=== PATIENT | female | born 1970 | race Hispanic/Latino ===

== ENCOUNTER 2025-01-18 07:33 | Emergency (ER) | payer SELFPAY ==
[2025-01-18] MEDS ORDERED: MORPHINE 4 MG/ML SYR ONE (08:57)
[2025-01-18] MEDS ORDERED: ONDANSETRON 4 MG/2 ML VIAL ONE (08:57)
[2025-01-18] MEDS ORDERED: NA CHLORIDE 0.9% 1,000 ML ONE (08:58)
[2025-01-18] MEDS ORDERED: FAMOTIDINE 20 MG/2 ML VIAL IV ONE (08:58)
[2025-01-18 09:07] LABS: Absolute Eosinophils 0.1 K/uL (0-0.5); Absolute Lymphocytes (CBC) 1.4 K/uL (0.7-4.9); Absolute Monocytes 0.4 K/uL (0.1-1.3); Absolute Neutrophil 5.1 K/uL (1.8-8.0); Basophils % 0.3 % (0-1.3); Eosinophils % 0.9 % (0-4.4); Hematocrit 38.5 % (36.0-45.0); Hemoglobin 13.2 g/dL (12.0-15.0); MCH 30.2 pg (27.0-35.0); MCHC 34.2 g/dL (32.0-36.0); MCV 88.5 fL (80-100); MPV 7.6 fL (7.6-11.3); Monocytes % 5.9 % (3.3-12.3); Neutrophils % 72.9 % (41.7-73.7); Nucleated Red Blood Cells % 0.1 % (0-0); Platelets 298 thou/uL (152-406); RBC Red Blood Cell Count 4.35 M/uL (3.86-4.86); Red Cell Distribution Width 15.1 % (12.1-15.2)
[2025-01-18 09:28] LABS: Albumin 3.8 g/dL (3.4-5.0); Anion Gap 9.8 mEq/L (5.0-15.0); Bilirubin Total 0.3 mg/dL (0.2-1.0); Potassium 3.8 mEq/L (3.5-5.1); Protein, Total 7.8 g/dL (6.4-8.2)
[2025-01-18] MEDS ORDERED: CIPROFLOXACIN 400mg IV 400 MG/200 ML BAG IV ONE (10:10)
[2025-01-18] MEDS ORDERED: METRONIDAZOLE 500mg IVPB 500 MG/100 ML BAG IV ONE (10:10)
--- NOTE | 2025-01-18 10:25 | RAD REPORT ---
EXAMINATION: Abdomen Pelvis W Contrast CLINICAL INDICATION: Female, 54 years old.ABD PAIN TECHNIQUE: CT abdomen and pelvis was performed, after the administration of IV contrast, as per [facility] protocol. Axial, sagittal and coronal reconstructions were obtained. One or more of the following dose reduction techniques were used: Automated exposure control, adjustment of the mA and/o r kV according to patient size, and/or iterative reconstruction. Unless otherwise specified, incidental findings do not require dedicated imaging follow-up. [id number]. COMPARISON: No prior exam. FINDINGS: LOWER CHEST: No acute process identified.No significant pericardial effusion. UPPER GI: No significant abnormality. LIVER: Hepatic steatosis, but otherwise unremarkable. GALLBLADDER/BILE DUCTS: No biliary ductal dilatation.? PANCREAS: No mass, ductal dilation, or nae-pancreatic fluid. SPLEEN: Unremarkable. ADRENALS: No adrenal masses. KIDNEYS AND URETERS: No hydronephrosis.No suspicious renal mass.Nonobstructing renal calculi. ABDOMINAL AORTA AND OTHER VESSELS: Normal caliber aorta and IVC. PERITONEUM: No abnormal free fluid. No free air. LYMPH NODES: No pathologic lymphadenopathy. ABDOMINAL WALL: Unremarkable SMALL BOWEL/COLON: Small bowel has normal course and caliber. No colonic wall thickening or pericolon ic inflammatory changes. URINARY BLADDER: Underdistended but grossly unremarkable. REPRODUCTIVE ORGANS: The lower uterine segment and cervix may be distended with blood products. 4 cm simple appearing left ovarian cyst. MUSCULOSKELETAL: No acute or suspicious osseous abnormality. ADDITIONAL FINDINGS: None. IMPRESSION: Distended lower uterine segment and cervix with likely blood products. The accumulation of blood in t his region could be from cervical stenosis. Suggest clinical correlation. Could also consider pelvic ultrasound. 4 cm simple appearing left adnexal cyst. Nonemergent pelvic ultrasound is recommended for further tyson luation.
[2025-01-18 10:29] LABS: Calcium Oxalate Crystals- Ur Few /HPF (None Seen); Specific Gravity 1.026 (1.005-1.030); Sqamous Epithelial <5 /HPF (None Seen); Urine Bacteria None Seen /HPF (<20); Urine Bilirubin NEGATIVE (Negative); Urine Blood 2+ (Negative); Urine Clarity Turbid (Clear); Urine Color Yellow (Yellow); Urine Culture Reflex Order NOT NEEDED; Urine Glucose NEGATIVE (Negative); Urine Ketones 1+ (Negative); Urine Microscopic Reflex YN ORDER UMIC; Urine Mucus Slight /HPF (None Seen); Urine Nitrite NEGATIVE (Negative); Urine Protein NEGATIVE (Negative); Urine RBC <5 /HPF (None Seen); Urine Urobilinogen Normal (Normal); Urine WBC <5 /HPF (<5); Urine pH 5.5 (5.0-7.0)
--- NOTE | 2025-01-18 11:17 | ER ---
Nurse's Notes [facility] Name: Ana Herron Age: 54 yrs Sex: Female : 1970 Arrival Date: 01/18/2025 Time: 07:33 Bed 6 Private MD: Diagnosis: Abdominal tenderness;Dysmenorrhea, unspecified Presentation: 01/18 07:42 Chief complaint: Patient states: lower abd pain since 4 am, radiates to left lower back iw , is on her period , she thought it was cramping , took two ibuprofen at 5 am. Coronavirus screen: At this time, the client does not indicate any symptoms associated with coronavirus-19. Ebola Screen: No symptoms or risks identified at this time. Initial Sepsis Screen: Does the patient meet any 2 criteria? No. Patient's initial sepsis screen is negative. Does the patient have a suspected source of infection? No. Patient's initial sepsis screen is negative. Risk Assessment: Do you want to hurt yourself or someone else? Patient reports no desire to harm self or others. Onset of symptoms was January 18, 2025. 07:42 Method Of Arrival: Ambulatory iw 07:42 Acuity: [place] 3 iw Triage Assessment: 07:45 General: Appears in no apparent distress. uncomfortable, obese, Behavior is calm, bp cooperative, appropriate for age. Pain: Complains of pain in abdomen. EENT: No deficits noted. Neuro: No deficits noted. Cardiovascular: No deficits noted. Respiratory: No deficits noted. GI: Abdomen is non-distended, obese. : Reports vaginal bleeding that is. Derm: No deficits noted. Musculoskeletal: No deficits noted. Historical: - Allergies: 07:44 No Known Allergies; iw - Home Meds: 07:44 None [Active]; iw - PMHx: 07:44 None; iw - PSHx: 07:44 section; iw 07:44 tubal ligation; iw - Immunization history:: Adult Immunizations Client reports receiving the 2nd dose of the Covid vaccine, Flu vaccine is not up to date. - Infectious Disease History:: Denies. - Social history:: Smoking status: Patient uses alcohol, weekly. - Family history:: not pertinent. Screenin:00 [facility] ED Fall Risk Assessment (Adult) History of falling in the last 3 months, bp including since admission No falls in past 3 months (0 pts) Confusion or Disorientation No (0 pts) Intoxicated or Sedated No (0 pts) Impaired Gait No (0 pts) Mobility Assist Device Used No (0 pt) Altered Elimination No (0 pt) Score/Fall Risk Level 0 - 2 = Low Risk. Abuse screen: Denies threats or abuse. Denies injuries from another. Nutritional screening: No deficits noted. Tuberculosis screening: No symptoms or risk factors identified. Assessment: 07:45 General: Appears in no apparent distress. uncomfortable, obese, Behavior is calm, bp cooperative, appropriate for age. 10:00 Reassessment: Patient appears in no apparent distress at this time. No changes from bp previously documented assessment. Patient is alert, oriented x 3, equal unlabored respirations, skin warm/dry/pink. 12:00 Reassessment: Patient appears in no apparent distress at this time. No changes from bp previously documented assessment. Patient is alert, oriented x 3, equal unlabored respirations, skin warm/dry/pink. 12:55 GI: Bowel sounds present X 4 quads. Abd is soft X 4 quads. bp Vital Signs: 07:42 BP 133 / 82; Pulse 82; Resp 16; Pulse Ox 100% on R/A; Weight 81.65 kg; Height 5 ft. 0 iw in. ; Pain 9/10; 10:00 BP 141 / 79; Pulse 79; Resp 16; Pulse Ox 100% ; bp 12:00 BP 137 / 81; Pulse 83; Resp 16; Pulse Ox 100% ; bp 07:42 Body Mass Index 35.15 (81.65 kg, 152.4 cm) iw 07:42 Pain Scale: Adult iw ED Course: 07:38 Patient arrived in ED. im 07:39 Cornell Negro MD is Attending Physician. bonifacio 07:43 Triage completed. iw 07:45 Arm band placed on. iw 08:06 Emeterio Oseguera, RN is Primary Nurse. bp 08:54 Inserted saline lock: 20 gauge in right antecubital area, using aseptic technique. td1 08:54 Initial lab(s) drawn, by me, sent to lab. Urine collected: clean catch specimen, clear. td1 10:14 CT Abd/Pelvis - IV Contrast Only In Process Unspecified. EDMS 10:22 UA Rfx Jamey Cult if indicated Sent. td1 11:16 Gina Santos MD is Referral Physician. bonifacio 11:43 Pelvis Complete In Process Unspecified. EDMS 12:00 Patient has correct armband on for positive identification. bp 12:00 No provider procedures requiring assistance completed. IV discontinued, intact, bp bleeding controlled, No redness/swelling at site. Pressure dressing applied. 12:09 Transvaginal Study Probe In Process Unspecified. EDMS Administered Medications: 08:45 Drug: Famotidine IVP 20 mg IVP once; dilute with 10 mL 0.9% NaCl; give over 2 minutes bp Route: IVP; Site: right antecubital; 12:54 Follow up: Response: No adverse reaction bp 08:45 Drug: Ondansetron IVP 4 mg IVP once; over 2 minutes Route: IVP; Site: right antecubital;bp 12:55 Follow up: Response: No adverse reaction bp 08:45 Drug: morphine IVP or IV 4 mg IVP once over 4 mins Route: IVP; Infused Over: 4 mins; bp Site: right antecubital; 12:54 Follow up: Response: No adverse reaction bp 08:45 Drug: NS 0.9% IV 1000 ml IV at 1 bolus Per protocol; to be given as a bolus over 60 bp minutes Route: IV; Rate: 1 bolus; Site: right antecubital; 12:55 Follow up: IV Status: Completed infusion bp 10:00 Drug: metroNIDAZOLE IVPB 500 mg 100 ml IVPB at 200 ml/hr once over 30 mins Volume: 100 bp ml; Route: IVPB; Rate: 200 ml/hr; Infused Over: 30 mins; Site: right antecubital; 12:54 Follow up: IV Status: Completed infusion bp 10:45 Drug: Ciprofloxacin IVPB 400 mg 200 ml IVPB once over 60 mins Volume: 200 ml; Route: bp IVPB; Infused Over: 60 mins; Site: right antecubital; 12:54 Follow up: IV Status: Completed infusion bp 11:20 Drug: Ketorolac IVP 15 mg IVP once Route: IVP; Site: right antecubital; bp 12:54 Follow up: Response: No adverse reaction bp Medication: 12:00 VIS not applicable for this client. bp Outcome: 11:16 Discharge ordered by . bonifacio 12:53 Discharged to home ambulatory, bp 12:53 Condition: stable 12:53 Discharge instructions given to patient, Instructed on discharge instructions, follow up and referral plans. medication usage, Demonstrated understanding of instructions, follow-up care, medications, Prescriptions given X 4, 12:55 Patient left the ED. bp Signatures: Dispatcher [employer] EDCornell Garcia MD MD cha Williams, Irene, RN RN iw Peltier, Brian, RN RN Tiffany Pichardo Trey td1
--- NOTE | 2025-01-18 11:17 | EDPHYS ---
Physician Documentation [facility] Name: Ana Herron Age: 54 yrs Sex: Female : 1970 Arrival Date: 01/18/2025 Time: 07:33 Bed 6 Private MD: LAKHWINDER Physician Cornell Negro HPI: 01/18 09:39 This 54 yrs old Female presents to ER via Ambulatory with complaints of bonifacio Abdominal Pain. 09:39 The patient presents with abdominal pain in the lower abdomen. Onset: The bonifacio symptoms/episode began/occurred today. The symptoms radiate to the left flank. Associated signs and symptoms: none. The symptoms are described as crampy, shooting. Modifying factors: The symptoms are alleviated by nothing, the symptoms are aggravated by nothing. Severity of pain: At its worst the pain was moderate in the emergency department the pain is unchanged. The patient has not experienced similar symptoms in the past. Historical: - Allergies: 07:44 No Known Allergies; iw - Home Meds: 07:44 None [Active]; iw - PMHx: 07:44 None; iw - PSHx: 07:44 section; iw 07:44 tubal ligation; iw - Immunization history:: Adult Immunizations Client reports receiving the 2nd dose of the Covid vaccine, Flu vaccine is not up to date. - Infectious Disease History:: Denies. - Social history:: Smoking status: Patient uses alcohol, weekly. - Family history:: not pertinent. ROS: 09:39 Constitutional: Negative for fever, chills, and weight loss, Eyes: Negative for injury, bonifacio pain, redness, and discharge, ENT: Negative for injury, pain, and discharge, Neck: Negative for injury, pain, and swelling, Cardiovascular: Negative for chest pain, palpitations, and edema, Respiratory: Negative for shortness of breath, cough, wheezing, and pleuritic chest pain, : Negative for injury, bleeding, discharge, and swelling, MS/Extremity: Negative for injury and deformity, Skin: Negative for injury, rash, and discoloration, Neuro: Negative for headache, weakness, numbness, tingling, and seizure, Psych: Negative for depression, anxiety, suicide ideation, homicidal ideation, and hallucinations, Allergy/Immunology: Negative for hives, rash, and allergies, Endocrine: Negative for neck swelling, polydipsia, polyuria, polyphagia, and marked weight changes, Hematologic/Lymphatic: Negative for swollen nodes, abnormal bleeding, and unusual bruising, 09:39 Abdomen/GI: Positive for abdominal pain, nausea, vomiting, abdominal cramps, abdominal distension, of the posterior aspect of left lateral abdomen, anterior aspect of left lateral abdomen, left upper quadrant and left lower quadrant, Exam: 09:39 Constitutional: This is a well developed, well nourished patient who is awake, alert, bonifacio and in no acute distress. Head/Face: Normocephalic, atraumatic. Eyes: Pupils equal round and reactive to light, extra-ocular motions intact. Lids and lashes normal. Conjunctiva and sclera are non-icteric and not injected. Cornea within normal limits. Periorbital areas with no swelling, redness, or edema. ENT: Nares patent. No nasal discharge, no septal abnormalities noted. Tympanic membranes are normal and external auditory canals are clear. Oropharynx with no redness, swelling, or masses, exudates, or evidence of obstruction, uvula midline. Mucous membranes moist. Neck: Trachea midline, no thyromegaly or masses palpated, and no cervical lymphadenopathy. Supple, full range of motion without nuchal rigidity, or vertebral point tenderness. No Meningismus. Chest/axilla: Normal chest wall appearance and motion. Nontender with no deformity. No lesions are appreciated. Cardiovascular: Regular rate and rhythm with a normal S1 and S2. No gallops, murmurs, or rubs. Normal PMI, no JVD. No pulse deficits. Respiratory: Lungs have equal breath sounds bilaterally, clear to auscultation and percussion. No rales, rhonchi or wheezes noted. No increased work of breathing, no retractions or nasal flaring. Back: No spinal tenderness. No costovertebral tenderness. Full range of motion. Skin: Warm, dry with normal turgor. Normal color with no rashes, no lesions, and no evidence of cellulitis. MS/ Extremity: Pulses equal, no cyanosis. Neurovascular intact. Full, normal range of motion., bilateral aka Neuro: Awake and alert, GCS 15, oriented to person, place, time, and situation. Cranial nerves II-XII grossly intact. Motor strength 5/5 in all extremities. Sensory grossly intact. Cerebellar exam normal. Normal gait. Psych: Awake, alert, with orientation to person, place and time. Behavior, mood, and affect are within normal limits. 09:39 Abdomen/GI: Inspection: abdomen appears normal, Bowel sounds: normal, Palpation: moderate abdominal tenderness, in the right lower quadrant and left lower quadrant, Liver: no appreciated palpable abnormalities, Hernia: not appreciated, Vital Signs: 07:42 BP 133 / 82; Pulse 82; Resp 16; Pulse Ox 100% on R/A; Weight 81.65 kg; Height 5 ft. 0 iw in. ; Pain 9/10; 10:00 BP 141 / 79; Pulse 79; Resp 16; Pulse Ox 100% ; bp 12:00 BP 137 / 81; Pulse 83; Resp 16; Pulse Ox 100% ; bp 07:42 Body Mass Index 35.15 (81.65 kg, 152.4 cm) iw 07:42 Pain Scale: Adult iw MDM: 07:39 Medical Screening Exam initiated bonifacio 09:41 Differential diagnosis: cholecystitis, Cholelithiasis, diverticulitis, Dysmenorrhea, bonifacio Endometriosis, gastritis, Hepatitis, non-specific abd pain, pancreatitis, Peptic Ulcer Disease, Pyelonephritis, Ureterolithiasis, urinary tract infection. Data reviewed: vital signs, nurses notes, lab test result(s), radiologic studies, CT scan. Consideration of Admission/Observation Escalation of care including admission/observation considered. I considered the following discharge prescriptions or medication management in the emergency department Medications were administered in the Emergency Department. See MAR. Independent interpretation of the following test(s) in the Emergency Department CT Scan: My interpretation is ct ab/pel. Test considered but Not performed: Ultrasound no abd usg. Historians other than the Patient: pt well informed. Care significantly affected by the following chronic conditions: Obesity. Counseling: I had a detailed discussion with the patient and/or guardian regarding the historical points, exam findings, and any diagnostic results supporting the discharge/admit diagnosis, lab results, radiology results, the need for outpatient follow up, for definitive care, a family practitioner. 01/18 07:53 Order name: CBC with Diff; Complete Time: 09:37 [facility] 01/18 07:53 Order name: CMP; Complete Time: 09:37 [facility] 01/18 07:53 Order name: Lipase; Complete Time: 09:37 [facility] 01/18 09:39 Order name: UA Rfx Jamey Cult if indicated; Complete Time: 10:32 [facility] 01/18 07:53 Order name: CT Abd/Pelvis - IV Contrast Only; Complete Time: 10:32 [facility] 01/18 11:42 Order name: Pelvis Complete; Complete Time: 12:34 [facility] 01/18 11:52 Order name: Transvaginal Study Probe; Complete Time: 12:34 [facility] 01/18 07:53 Order name: IV Saline Lock; Complete Time: 08:54 [facility] 01/18 07:53 Order name: Labs collected and sent; Complete Time: 08:54 [facility] Administered Medications: 08:45 Drug: Famotidine IVP 20 mg IVP once; dilute with 10 mL 0.9% NaCl; give over 2 minutes bp Route: IVP; Site: right antecubital; 12:54 Follow up: Response: No adverse reaction bp 08:45 Drug: Ondansetron IVP 4 mg IVP once; over 2 minutes Route: IVP; Site: right antecubital;bp 12:55 Follow up: Response: No adverse reaction bp 08:45 Drug: morphine IVP or IV 4 mg IVP once over 4 mins Route: IVP; Infused Over: 4 mins; bp Site: right antecubital; 12:54 Follow up: Response: No adverse reaction bp 08:45 Drug: NS 0.9% IV 1000 ml IV at 1 bolus Per protocol; to be given as a bolus over 60 bp minutes Route: IV; Rate: 1 bolus; Site: right antecubital; 12:55 Follow up: IV Status: Completed infusion bp 10:00 Drug: metroNIDAZOLE IVPB 500 mg 100 ml IVPB at 200 ml/hr once over 30 mins Volume: 100 bp ml; Route: IVPB; Rate: 200 ml/hr; Infused Over: 30 mins; Site: right antecubital; 12:54 Follow up: IV Status: Completed infusion bp 10:45 Drug: Ciprofloxacin IVPB 400 mg 200 ml IVPB once over 60 mins Volume: 200 ml; Route: bp IVPB; Infused Over: 60 mins; Site: right antecubital; 12:54 Follow up: IV Status: Completed infusion bp 11:20 Drug: Ketorolac IVP 15 mg IVP once Route: IVP; Site: right antecubital; bp 12:54 Follow up: Response: No adverse reaction bp Disposition Summary: 01/18/25 11:16 Discharge Ordered Notes: Location: Home [facility] Problem: new bonifacio Symptoms: have improved bonifacio Condition: Stable bonifacio Diagnosis - Abdominal tenderness bonifacio - Dysmenorrhea, unspecified bonifacio Followup: bonifacio - With: Private Physician - When: 2 - 3 days - Reason: Recheck today's complaints, Continuance of care, Re-evaluation by your physician Followup: bonifacio - With: Gina Santos MD - When: 2 - 3 days - Reason: Recheck today's complaints, Re-evaluation by your physician Discharge Instructions: - Discharge Summary Sheet bonifacio - Abdominal Pain, Adult bonifacio - Dysmenorrhea bonifacio - Abdominal Pain, Adult, [id number] bonifacio - Dysmenorrhea, [id number] bonifacio Forms: - Medication Reconciliation Form [facility] - Antibiotic Education bonifacio - Prescription Opioid Use [facility] - Patient Portal Instructions [facility] - Leadership Thank You Letter [facility] Prescriptions: - Flagyl 500 mg Oral tablet - take 1 tablet ORAL route every 8 hours for 7 days; 21 tablet; Refills: 0, [facility] Product Selection Permitted - Zofran 4 mg Oral Tablet - take 1 tablet ORAL route every 12 hours As needed; 20 tablet; Refills: 0, [facility] Product Selection Permitted - Cipro 500 mg Oral Tablet - take 1 tablet ORAL route every 12 hours for 7 days; 14 tablet; Refills: 0, [facility] Product Selection Permitted - dicyclomine 20 mg Oral tablet - take 1 tablet ORAL route 4 times per day; 28 tablet; Refills: 0, Product [facility] Selection Permitted Signatures: Dispatcher [employer] EDCornell Garcia MD MD cha Williams, Irene, ADONAY URIAS iw Emeterio Oseguera RN RN bp Corrections: (The following items were deleted from the chart) 07:53 07:53 CBC+H.LAB.BRZ ordered. EDMS EDMS 07:53 07:53 COMPREHENSIVE METABOLIC PANEL+C.LAB.BRZ ordered. EDMS EDMS 07:53 07:53 LIPASE+C.LAB.BRZ ordered. EDMS EDMS 07:53 07:53 Abdomen Pelvis W Con+CT.RAD.BRZ ordered. EDMS EDMS 11:42 10:33 Transvaginal Study (Probe)+US.RAD.BRZ ordered. EDMS EDMS
[2025-01-18] MEDS ORDERED: KETOROLAC 30 MG/ML INJ ONE (11:31)
--- NOTE | 2025-01-18 12:20 | RAD REPORT ---
Transvaginal Study Probe CLINICAL INDICATION: Female 54 years [address]IN [address] TECHNIQUE: Real-time ultrasonography of the pelvis was performed transvaginally and transabdominally. Color and spectral Doppler evaluation of the ovaries was performed. [id number]. COMPARISON: Same day CT FINDINGS: UTERUS AND CERVIX: The uterus measures 12 x 5.6 x 7.2 cm (cervix to fundus x AP x transverse). . The endometrium is thickened measuring 11 mm. The endometrial canal is distended with fluid. There is a large area of homogeneous contents within the cervix. RIGHT OVARY: Subcentimeter cyst present which do not require follow-up and are benign. The right ovar y measures 2.6 x 2.4 x 2 cm with volume of 6.6 mL. Normal color and spectral Doppler evaluation of the right ovary.. LEFT OVARY: Simple appearing left ovarian cyst measuring 3 x 1.7 x 3.1 cm. Follow-up not required. The left ovary measures 3.9 x 2.5 x 2.4 cm with volume of 12.4 mL. Normal Color and spectral Doppler evaluation of the left ovary.. FREE FLUID: No free fluid. IMPRESSION: 1. Homogeneous contents at the cervix possibly indicating a large clot. There is endometrial fluid pr esent. The endometrium measures 11 mm which can be normal or abnormal depending on if premenopausal or perimenopausal. Recommend gynecologic consultation or referral. 2. Bilateral ovarian blood flow.
--- NOTE | 2025-01-18 12:20 | RAD REPORT ---
Pelvis Complete CLINICAL INDICATION: Female 54 years old [address]IN [address] TECHNIQUE: Real-time ultrasonography of the pelvis was performed transvaginally and transabdominally. Color and spectral Doppler evaluation of the ovaries was performed. [id number]. COMPARISON: Same day CT FINDINGS: UTERUS AND CERVIX: The uterus measures 12 x 5.6 x 7.2 cm (cervix to fundus x AP x transverse). . The endometrium is thickened measuring 11 mm. The endometrial canal is distended with fluid. There is a large area of homogeneous contents within the cervix. RIGHT OVARY: Normal The right ovary measures 2.6 x 2.4 x 2 cm with volume of 6.6 mL. Normal color and spectral Doppler evaluation of the right ovary.. LEFT OVARY: Simple appearing left ovarian cyst measuring 3 x 1.7 x 3.1 cm. Follow-up not required. The left ovary measures 3.9 x 2.5 x 2.4 cm with volume of 12.4 mL. Normal Color and spectral Doppler evaluation of the left ovary.. FREE FLUID: No free fluid. IMPRESSION: 1. Homogeneous contents at the cervix possibly indicating a large clot. There is endometrial fluid pr esent. The endometrium measures 11 mm which can be normal or abnormal depending on if premenopausal or perimenopausal. Recommend gynecologic consultation or referral. 2. Bilateral ovarian blood flow.
[2025-01-18 13:00] VITALS: O2SAT 100
[2025-01-18 13:03] VITALS: BP 137/81
== END 2025-01-18 12:55 | disposition home or self-care (01) ==
LOC: ER 07:33
DX: R10.813 Right lower quadrant abdominal tenderness (principal); R10.814 Left lower quadrant abdominal tenderness; N94.6 Dysmenorrhea, unspecified
CPT/HCPCS: 36415; 74177; 76830; 76856; 80053; 81001; 83690; 85025; 96361; 96365; 96366; 96375; 99284; J0744; J2405; J7030; Q9967